=== PATIENT | female | born 1960 | race African-American/Black ===

== ENCOUNTER 2020-11-24 11:58 | Outpatient (CLI) | payer MEDICARE, MEDICAID | END 2020-11-24 11:59 | disposition home or self-care (01) | LOC: CSHCT 11:58 | PROVIDERS: ATTEND Internal Medicine Hematology & Oncology | DX: C34.11 Malignant neoplasm of upper lobe, right bronchus or lung (principal) | CPT/HCPCS: 71260; 82565 ==

== ENCOUNTER 2021-02-24 11:15 | Outpatient (CLI) | payer MEDICARE, MEDICAID ==
[2021-02-25 02:05] LABS: SARS-CoV-2 PCR by NAA Not Detected (NotDetected)
== END 2021-02-24 11:16 | disposition home or self-care (01) ==
LOC: CSHLAB 11:15
PROVIDERS: ATTEND Anesthesiology Pain Medicine
DX: Z20.822 Contact with and (suspected) exposure to COVID-19 (principal)
CPT/HCPCS: U0003; U0005

== ENCOUNTER 2021-05-25 11:55 | Outpatient (CLI) | payer MEDICARE, MEDICAID | END 2021-05-25 11:56 | disposition home or self-care (01) | LOC: CSHCT 11:55 | PROVIDERS: ATTEND Internal Medicine Hematology & Oncology | DX: C34.11 Malignant neoplasm of upper lobe, right bronchus or lung (principal); E27.8 Other specified disorders of adrenal gland | CPT/HCPCS: 71260; 82565 ==

== ENCOUNTER 2021-11-23 12:44 | Outpatient (CLI) | payer MEDICARE, MEDICAID ==
[2021-11-23] MEDS ORDERED: Iopamidol 300 61% 100 ML VIAL FS ONE (15:33)
== END 2021-11-23 12:45 | disposition home or self-care (01) ==
LOC: CSHCT 12:44
PROVIDERS: ATTEND Internal Medicine Hematology & Oncology
DX: C34.11 Malignant neoplasm of upper lobe, right bronchus or lung (principal); Z98.890 Other specified postprocedural states; E27.8 Other specified disorders of adrenal gland
CPT/HCPCS: 71260; 82565

== ENCOUNTER 2022-05-24 12:34 | Outpatient (CLI) | payer MEDICARE, MEDICAID ==
[~2022-05-24 12:34] MED LIST: Iopamidol 300 61% 100 ML VIAL FS ONE
== END 2022-05-24 12:35 | disposition home or self-care (01) ==
LOC: CSHCT 12:34
PROVIDERS: ATTEND Internal Medicine Hematology & Oncology
DX: C34.11 Malignant neoplasm of upper lobe, right bronchus or lung (principal)
CPT/HCPCS: 71260; 82565

== ENCOUNTER 2023-05-23 12:57 | Outpatient (CLI) | payer OTHER, MEDICAID | END 2023-05-23 12:58 | disposition home or self-care (01) | LOC: CSHCT 12:57 | PROVIDERS: ATTEND Internal Medicine Hematology & Oncology | DX: Z12.2 Encounter for screening for malignant neoplasm of respiratory organs (principal); F17.210 Nicotine dependence, cigarettes, uncomplicated; J98.4 Other disorders of lung; R91.1 Solitary pulmonary nodule; Z98.890 Other specified postprocedural states | CPT/HCPCS: 71271 ==

== ENCOUNTER 2024-05-24 12:42 | Outpatient (CLI) | payer OTHER, MEDICAID | END 2024-05-24 12:43 | disposition home or self-care (01) | LOC: CSHCT 12:42 | PROVIDERS: ATTEND Internal Medicine Hematology & Oncology | DX: Z12.2 Encounter for screening for malignant neoplasm of respiratory organs (principal); F17.210 Nicotine dependence, cigarettes, uncomplicated | CPT/HCPCS: 71271 ==